=== PATIENT | female | born 2000 | race Hispanic/Latino ===

== ENCOUNTER 2023-07-22 01:25 | Emergency (ER) | payer SELFPAY ==
[~2023-07-22] VITALS: Ht 162.6 cm; Wt 55.3 kg
[2023-07-22] MEDS ORDERED: ALBUTEROL/IPRATROPIUM 3 ML NEB ONE (01:54)
[2023-07-22] MEDS ORDERED: ALBUTEROL/IPRATROPIUM 3 ML NEB NEB ONE ×2 (02:30→02:45)
[2023-07-22] MEDS ORDERED: PROAIR DIGIHAL90 MCG INH (03:38)
[2023-07-22] MEDS ORDERED: BROMFED DM COU118 ML PO (03:38)
[2023-07-22] MEDS ORDERED: CEFDINIR300 MG PO (03:38)
[2023-07-22 05:13] VITALS: BP 113/64; PULSE 71; RESP 16; TEMP 98.2; O2SAT 100
== END 2023-07-22 03:45 | disposition home or self-care (01) ==
LOC: FSED 02:10
DX: R05.9 Cough, unspecified (principal); J20.9 Acute bronchitis, unspecified
CPT/HCPCS: 71045; 99283